=== PATIENT | female | born 2000 | race Two or more races ===

== ENCOUNTER 2020-12-31 08:44 | Emergency (ER) | payer MEDICAID ==
[~2020-12-31] VITALS: Ht 157.5 cm; Wt 64.9 kg
[2020-12-31 08:53] VITALS: BP 126/73
--- NOTE | 2020-12-31 09:00 | NUR ---
DR. SHAW AT BEDSIDE FOR EVAL. ACCOMPANIED BY A FEMALE RN.
[2020-12-31] MEDS ORDERED: CLIN300C12 PO (09:14)
--- NOTE | 2020-12-31 09:19 | NUR ---
Patient discharged to home in stable condition. Written and verbal after care instructions given. Patient verbalizes understanding of instruction.
== END 2020-12-31 09:19 | disposition home or self-care (01) ==
LOC: ER 08:49
DX: L05.01 Pilonidal cyst with abscess (principal)

== ENCOUNTER 2022-01-06 09:05 | Emergency (ER) | payer MEDICAID ==
[~2022-01-06] VITALS: Ht 157.5 cm; Wt 68.0 kg
[~2022-01-06 09:05] MED LIST: CLIN300C12 PO
[2022-01-06 09:22] VITALS: BP 127/73
--- NOTE | 2022-01-06 10:14 | NUR ---
dr quinonez at bedside for eval.
--- NOTE | 2022-01-06 10:43 | NUR ---
Patient discharged to home in stable condition. Written and verbal after care instructions given. Patient verbalizes understanding of instruction.
== END 2022-01-06 10:43 | disposition home or self-care (01) ==
LOC: ER 09:05
DX: L73.8 Other specified follicular disorders (principal); Z79.899 Other long term (current) drug therapy

== ENCOUNTER 2023-10-23 14:51 | Emergency (ER) | payer OTHER ==
[~2023-10-23] VITALS: Ht 157.5 cm; Wt 72.6 kg
[2023-10-23 15:15] VITALS: BP 126/72; TEMP 98
[2023-10-23] MEDS ORDERED: CYCL5TAB PO (15:31)
[2023-10-23] MEDS ORDERED: KETOROLAC TROMETHAMINE INJ 30 MG/ML VIAL ONE (15:36)
[2023-10-23] MEDS ORDERED: CYCLOBENZAPRINE 10 MG TABLET ONE (15:36)
[2023-10-23] MEDS: CYCLOBENZAPRINE 10 MG TABLET PO ONE (15:41)
[2023-10-23] MEDS: KETOROLAC TROMETHAMINE INJ 60 MG/2 ML VIAL IM ONE (15:41)
[2023-10-23 15:42] VITALS: O2SAT 99
== END 2023-10-23 15:43 | disposition home or self-care (01) ==
LOC: ER 15:02
DX: M54.50 Low back pain, unspecified (principal); R07.9 Chest pain, unspecified; R06.02 Shortness of breath
CPT/HCPCS: 99283; 96372; J1885